=== PATIENT | male | born 1970 | race Caucasian/White ===

== ENCOUNTER 2018-06-26 17:49 | Emergency (ER) | payer MEDICAID ==
[~2018-06-26] VITALS: Ht 188 cm; Wt 109.1 kg
[~2018-06-26 17:49] MED LIST: CYCL-1 PO; CYCL-394 PO; PANT-47 PO
[2018-06-26 17:53] VITALS: BP 124/80
[2018-06-26] MEDS ORDERED: dexamethasone sod phosphate 10mg/ml inj IM STA (17:57)
[2018-06-26] MEDS ORDERED: morphine 4 MG/ML inj SYRINge IM ONE (18:00)
[2018-06-26] MEDS ORDERED: ondansetron 4mg rapidly disintigrating tab PO ONE (18:00)
[2018-06-26] MEDS ORDERED: cyclobenzaprine 10mg tablet PO ONE (18:00)
[2018-06-26] MEDS ORDERED: HYDR-4353 PO (18:25)
== END 2018-06-26 18:34 | disposition home or self-care (01) ==
LOC: ER 17:50
DX: M54.5 Low back pain (principal); I10 Essential (primary) hypertension; G89.29 Other chronic pain; F15.90 Other stimulant use, unspecified, uncomplicated; Z98.890 Other specified postprocedural states; Z56.0 Unemployment, unspecified; Z79.899 Other long term (current) drug therapy
CPT/HCPCS: 72100; 96372; 99284; J1100; J2270

== ENCOUNTER 2018-08-28 17:46 | Emergency (ER) | payer MEDICAID | END 2018-08-28 18:36 | disposition left against medical advice (07) | LOC: ER 17:46 | DX: M54.9 Dorsalgia, unspecified (principal); Z53.21 Procedure and treatment not carried out due to patient leaving prior to being seen by health care provider ==

== ENCOUNTER 2019-04-14 10:09 | Emergency (ER) | payer MEDICAID ==
[~2019-04-14] VITALS: Ht 188 cm; Wt 101.0 kg
[2019-04-14 10:14] VITALS: BP 201/121
--- NOTE | 2019-04-14 11:05 | NUR ---
patient has fishhook in middle finger of left hand
[2019-04-14] MEDS ORDERED: LIDOcaine 1% w/EPI 1:100,000 30ml vial (MDV) ONE (12:00)
== END 2019-04-14 11:40 | disposition home or self-care (01) ==
LOC: ER 10:09
DX: S60.453A Superficial foreign body of left middle finger, initial encounter (principal); I10 Essential (primary) hypertension; G89.29 Other chronic pain; F17.210 Nicotine dependence, cigarettes, uncomplicated; F15.90 Other stimulant use, unspecified, uncomplicated; Z98.890 Other specified postprocedural states; Z56.0 Unemployment, unspecified; Z79.899 Other long term (current) drug therapy; X58.XXXA Exposure to other specified factors, initial encounter; Y93.89 Activity, other specified; Y92.89 Other specified places as the place of occurrence of the external cause; Y99.8 Other external cause status
CPT/HCPCS: 99281

== ENCOUNTER 2021-10-25 01:33 | Inpatient (IN) | payer MEDICAID ==
[~2021-10-25] VITALS: Ht 188 cm; Wt 109.1 kg
[2021-10-25 02:57] LABS: BASOPHILS # (AUTO) 0.1 X10'3 (0-0.2); BASOPHILS % (AUTO) 0.5 % (0-1); EOSINOPHILS % (AUTO) 0.3 % (0-6); HEMATOCRIT 37.2 % (42.0-52.0); HEMOGLOBIN 11.6 g/dl (14.0-17.9); LYMPHOCYTES # (AUTO) 1.8 X10'3 (1.1-4.8); LYMPHOCYTES % (AUTO) 12.1 % (21-51); MEAN CORPUSCULAR HEMOGLOBIN 19.9 PG (27.0-31.0); MEAN CORPUSCULAR HGB CONC 31.1 g/dL (33.0-36.5); MEAN CORPUSCULAR VOLUME 63.9 FL (78-98); MEAN PLATELET VOLUME 7.4 FL (7.4-10.4); MONOCYTES # (AUTO) 0.9 X10'3 (0-0.9); MONOCYTES % (AUTO) 5.9 % (2-12); NEUTROPHILS # (AUTO) 12.3 X10'3 (1.8-7.7); NEUTROPHILS % (AUTO) 81.2 % (42-75); PLATELET COUNT 475 X10'3 (140-440); RED BLOOD COUNT 5.82 X10'6 (4.70-6.10); RED CELL DISTRIBUTION WIDTH 19.9 % (11.5-14.5); WHITE BLOOD COUNT 15.1 X10'3 (4.5-11.0)
[2021-10-25 03:10] LABS: ALANINE AMINOTRANSFERASE 32 U/L (12-78); ALBUMIN 4.1 G/DL (3.4-5.0); ALBUMIN/GLOBULIN RATIO 1.1 (1.1-1.5); ALKALINE PHOSPHATASE 79 IU/L (46-116); ANION GAP 15 (8-16); ASPARTATE AMINO TRANSFERASE 25 U/L (10-37); BILIRUBIN,TOTAL 0.3 MG/DL (0.1-1.0); BLOOD UREA NITROGEN 17 MG/DL (7-18); CHLORIDE 102 MMOL/L (99-107); CREATININE 1.54 MG/DL (0.60-1.10); GLUCOSE 115 MG/DL (70-104); LIPASE 146 U/L (73-393); POTASSIUM 3.6 MMOL/L (3.5-5.1); SODIUM 143 MMOL/L (135-145); TOTAL CARBON DIOXIDE 26.5 MMOL/L (24-32); TOTAL PROTEIN 7.9 G/DL (6.4-8.2); eGFR 48 ML/MIN
[2021-10-25] MEDS ORDERED: morphine 4 MG/ML inj SYRINge IV ONE (03:10)
[2021-10-25] MEDS ORDERED: LORazepam 2 mg/ml vial IV ONE (03:10)
[2021-10-25] MEDS ORDERED: normal saline 1000ML IV soln IVB ONE (03:15)
[2021-10-25] MEDS: metoprolol tartrate 1mg/ml inj IV SCH ×6 (03:21→04:25)
[2021-10-25] MEDS ORDERED: iohexol 300mg/ml 100ml inj. ONE (03:22)
[2021-10-25 03:37] LABS: MAGNESIUM 2.3 MG/DL (1.5-2.4)
[2021-10-25 04:41] LABS: ANISOCYTOSIS 2+; ELLIPTOCYTES FEW; MICROCYTOSIS 2+; PLATELET ESTIMATE INCREASED; STOMATOCYTES FEW
[2021-10-25 05:14] LABS: APTT 23 SECONDS (22-32); D-DIMER 1.13 MG/L FEU (0-0.50)
[2021-10-25] MEDS ORDERED: potassium CL 10mEq/100ml bag 100 ML IV PRN (05:30)
[2021-10-25] MEDS: normal saline 1000ml 1,000 ML IV SCH ×2 (05:30→15:30)
[2021-10-25] MEDS ORDERED: morphine 2 MG/ML inj. syringe IV PRN (05:30)
[2021-10-25] MEDS ORDERED: magnesium 4gm in 100ml NS 100 ML IV PRN (05:30)
[2021-10-25] MEDS ORDERED: ondansetron/PF 4mg/2ml inj IV PRN (05:30)
[2021-10-25] MEDS ORDERED: magnesium 2GM in 50ml NS 50 ML IV PRN (05:30)
[2021-10-25] MEDS ORDERED: acetaminophen 325mg tablet PO PRN (05:30)
--- NOTE | 2021-10-25 05:34 | NUR ---
PUT IN AN NG TUBE AND PATIENT STRUGGLED AGAINST STAFF. SUCCEEDED IN PLACEMENT, REMOVED 1 L OF GASTRIC FLUID. PT VOMITED TWICE. PT PULLED OUT THE NG TUBE AND STRUGGLED WHEN WE TRIED TO REPLACE THE NG TUBE. WE FAILED TO PLACE A SECOND NG TUBE SO FAR.
[2021-10-25 05:43] LABS: ETHANOL < 0.010 GM/DL (0.0-0.010)
--- NOTE | 2021-10-25 06:43 | NUR ---
PER SHOWER MAID RN CLIFF PATIENT WAS EXTREMELY COMBATIVE AND AGGRESSIVE WITH 2ND ATTEMPT OF NG TUBE PLACEMENT. PT IS ORIENTED X1 AT THIS TIME AND NON-COMPLIANT. DISCUSSED CARE WITH SHOWER MAID CHARGE, WHO EXPRESSED SAFETY CONCERNS ABOUT PLACING NEW NG TUBE. WILL DISCUSS PLAN OF CARE WITH DAY SHIFT HOSPITALIST.
--- NOTE | 2021-10-25 07:15 | NUR ---
DR. MORGAN PAGED.
--- NOTE | 2021-10-25 07:52 | NUR ---
DR MORGAN UPDATED ON PT CONDITION. PT IS NOT ACTIVELY VOMITTING. PER MD MONITOR MENTATION AND IF PATIENT BECOME MORE AGREEABLE REATTEMPT NG PLACEMENT. WILL CONTINUE TO MONITOR.
[2021-10-25] MEDS: docusate sod 100mg capsule PO SCH ×2 (08:00→20:00)
[2021-10-25] MEDS: pantoprazole 40MG/NS 100ML BAG 100 ML IV SCH (08:16)
[2021-10-25] MEDS: enalaprilat dihydrate 2.5mg/2ml vial IV SCH ×3 (08:18→20:35)
[2021-10-25] MEDS: K and/or MAG REPLACEMENT MC SCH ×2 (08:22→20:00)
--- NOTE | 2021-10-25 10:00 | NUR ---
Patient admitted from ER. accompanied by his father, B/P is high DR Guajardo made aware will continue to monitor.
[2021-10-25 10:01] LABS: POTASSIUM 4.7 MMOL/L (3.5-5.1)
[2021-10-25] MEDS ORDERED: LIDOcaine 2% 10ml TOPICAL JELLY (Urojet) TP ONE (10:35)
[2021-10-25 11:45] LABS: CLARITY,URINE CLEAR (Clear); COLOR,URINE YELLOW (Yellow); GLUCOSE, URINE NEGATIVE (Neg); KETONES,URINE NEGATIVE (Neg); LEUKOCYTE ESTERASE ,URINE NEGATIVE (Neg); NITRITES, URINE NEGATIVE (Neg); OCCULT BLOOD,URINE NEGATIVE (Neg); PROTEIN,URINE NEGATIVE (Neg); UROBILINOGEN,URINE 0.2 E.U/dL (0.2-1.0)
[2021-10-25 11:47] LABS: UA COLLECTION TYPE NON-SPECIFIED
[2021-10-25 11:58] LABS: URINE AMPHETAMINE SCREEN POSITIVE (Neg); URINE BARBITUATE SCREEN NEGATIVE (Neg); URINE BENZODIAZEPINES SCREEN NEGATIVE (Neg); URINE CANNABINOID SCREEN NEGATIVE (Neg); URINE COCAINE SCREEN NEGATIVE (Neg); URINE METHADONE SCREEN NEGATIVE (Neg); URINE OPIATE SCREEN POSITIVE (Neg); URINE PHENCYCLIDINE SCREEN NEGATIVE (Neg)
--- NOTE | 2021-10-25 12:00 | NUR ---
NG-TUBE INSERTED 300CC COLLECTED.
[2021-10-25] MEDS ORDERED: NO HOME MEDS (12:22)
[2021-10-25] MEDS: diatr meglu/diatrizoate 30ml oral sol.-(3 dose) bottle PO SCH ×3 (12:54→18:00)
--- NOTE | 2021-10-25 17:30 | NUR ---
Patient stable no distress noted CT completed awaiting result.
--- NOTE | 2021-10-25 18:27 | NUR ---
Problems reprioritized. Patient report given, questions answered & plan of care reviewed with FABIOLA STEINER.
[2021-10-25 19:00] VITALS: BP 156/81
[2021-10-26] VITALS (29 sets, daily range): BP systolic 139–188; BP diastolic 78–113
[2021-10-26] MEDS: morphine 2 MG/ML inj. syringe IV PRN ×2 (00:27→04:33)
[2021-10-26] MEDS: normal saline 1000ml 1,000 ML IV SCH ×4 (00:28→21:49)
[2021-10-26] MEDS: enalaprilat dihydrate 2.5mg/2ml vial IV SCH ×5 (02:31→19:50)
[2021-10-26] MEDS: VANCOMYCIN 1GM/200ML IVPB 200 ML IV SCH ×2 (04:01→16:19)
[2021-10-26 07:51] LABS: BASOPHILS # (AUTO) 0.1 X10'3 (0-0.2); BASOPHILS % (AUTO) 0.5 % (0-1); EOSINOPHILS % (AUTO) 0.4 % (0-6); LYMPHOCYTES # (AUTO) 1.7 X10'3 (1.1-4.8); LYMPHOCYTES % (AUTO) 16.9 % (21-51); MONOCYTES # (AUTO) 1.4 X10'3 (0-0.9); MONOCYTES % (AUTO) 14.3 % (2-12); NEUTROPHILS # (AUTO) 6.7 X10'3 (1.8-7.7); NEUTROPHILS % (AUTO) 67.9 % (42-75); PLATELET COUNT 331 X10'3 (140-440); WHITE BLOOD COUNT 9.9 X10'3 (4.5-11.0)
--- NOTE | 2021-10-26 07:51 | NUR ---
Problems reprioritized. Patient report given, questions answered & plan of care reviewed with Bakari in OR.
[2021-10-26] MEDS: docusate sod 100mg capsule PO SCH ×3 (08:00→20:09)
[2021-10-26] MEDS: K and/or MAG REPLACEMENT MC SCH ×2 (08:00→19:59)
[2021-10-26] MEDS: pantoprazole 40MG/NS 100ML BAG 100 ML IV SCH (08:00)
[2021-10-26] MEDS ORDERED: propofol inj 20 ML IV ONE (08:18)
[2021-10-26] MEDS ORDERED: fentaNYL /PF 50mcg/ml 5ml ampule ONE (08:18)
[2021-10-26] MEDS ORDERED: rocuronium 10mg/ml inj IV ONE (08:18)
[2021-10-26] MEDS ORDERED: midazolam 1 mg/ML 2ml injection ONE (08:18)
[2021-10-26] MEDS: piperacillin/tazo 3.375gm/50ml 50 ML IV SCH ×3 (08:25→23:46)
[2021-10-26] MEDS ORDERED: ceFOXitin 1000 MG inj ONE ×2 (08:32)
[2021-10-26 08:39] LABS: ALANINE AMINOTRANSFERASE 21 U/L (12-78); ALKALINE PHOSPHATASE 57 IU/L (46-116); ANION GAP 14 (8-16); ASPARTATE AMINO TRANSFERASE 18 U/L (10-37); BILIRUBIN,TOTAL 0.4 MG/DL (0.1-1.0); BLOOD UREA NITROGEN 24 MG/DL (7-18); BUN/CREATININE RATIO 16.4 (5.4-32.0); CALCIUM 7.6 MG/DL (8.5-10.1); CHLORIDE 108 MMOL/L (99-107); CREATININE 1.46 MG/DL (0.60-1.10); GLUCOSE 94 MG/DL (70-104); POTASSIUM 4.3 MMOL/L (3.5-5.1); SODIUM 145 MMOL/L (135-145); TOTAL CARBON DIOXIDE 23.1 MMOL/L (24-32); eGFR 52 ML/MIN
[2021-10-26] MEDS ORDERED: proCHLORperazine 10 MG/2 ml inj IV PRN (08:40)
[2021-10-26] MEDS ORDERED: meperidine/PF 25mg/ml syringe IV PRN ×2 (08:40)
[2021-10-26] MEDS ORDERED: morphine 2 MG/ML inj. syringe IV PRN (08:40)
[2021-10-26] MEDS ORDERED: ondansetron/PF 4mg/2ml inj IV PRN (08:40)
[2021-10-26] MEDS ORDERED: ringers solution, lacted 1,000 ML IV SCH (08:40)
[2021-10-26 08:42] LABS: HEMOGLOBIN 9.8 g/dl (14.0-17.9); RED BLOOD COUNT 4.64 X10'6 (4.70-6.10)
[2021-10-26 08:43] LABS: MEAN CORPUSCULAR HEMOGLOBIN 21.1 PG (27.0-31.0); MEAN CORPUSCULAR HGB CONC 31.5 g/dL (33.0-36.5); MEAN CORPUSCULAR VOLUME 66.8 FL (78-98); RED CELL DISTRIBUTION WIDTH 20.2 % (11.5-14.5)
[2021-10-26] MEDS ORDERED: neostigmine methylsulfate 1 MG/ML 10ml vial ONE (09:34)
[2021-10-26] MEDS ORDERED: glycopyrrolate 0.2mg/ml inj ONE (09:34)
[2021-10-26] MEDS ORDERED: ondansetron/PF 4mg/2ml inj ONE (09:41)
[2021-10-26] MEDS ORDERED: FENTANYL CITRATE/PF 50 MCG/1 ML VIAL ONE (09:49)
--- NOTE | 2021-10-26 09:53 | NUR ---
Received from OR via HOSPITAL BED , accompanied by Anesthesiologist DR MILTON and report given by Anesthesiolgist. PT PRESENTS WITH PIV 18G RIGHT WRIST ABD DDRESSING CLEAN DRY AND INTACT. VSS. Addendum: 10/26/21 at 1015 by Zaida Carrillo RN, RN Amended: Links added.
[2021-10-26] MEDS: meperidine/PF 25mg/ml syringe IV PRN ×3 (10:07→10:39)
[2021-10-26] MEDS: morphine 4 MG/ML inj SYRINge IV PRN ×2 (10:24→11:43)
[2021-10-26] MEDS ORDERED: naloxone 0.4 mg/ml inj IV PRN (11:20)
[2021-10-26] MEDS: HYDROmorph./NS 0.2 mg/ml CADD 100 ML IV SCH ×7 (12:20→23:00)
--- NOTE | 2021-10-26 12:43 | NUR ---
Report called to receiving nurse HILDA STEINER. Transferred via HOSPITAL BED BACK TO ROOM 355B. BED IN LOW LOCKED POSITION WITH CALL LIGHT IN REACH, FAMILY FOLOWWED PT TO ROOM 354B. Special Issues communicated to receiving nurse. Addendum: 10/26/21 at 1258 by Zaida Carrillo RN RN Amended: Links added.
--- NOTE | 2021-10-26 14:40 | NUR ---
PAGER ID: [phone] MESSAGE: HILDA SURG [id number] RE: 354C [place] + BLOOD CULTURE GRAM + COCCI IN CLUSTER AEROBIC BOTTLE DRAWN 10/25 @0430 FROM IV. THANKS
--- NOTE | 2021-10-26 18:21 | NUR ---
Problems reprioritized. Patient report given, questions answered & plan of care reviewed with ERIKA STEINER.
--- NOTE | 2021-10-26 18:24 | NUR ---
PAGER ID: [phone] MESSAGE: HILDA SURG [id number] RE: 354C [place] HAS HIGH BLOOD PRESSURES BUT REFUSES THE VASOTEC, THANKS HILDA
--- NOTE | 2021-10-26 18:40 | NUR ---
Patient in room [facility]. I have received report from Bakari STEINER and had the opportunity to ask questions and assume patient care.
[2021-10-26] MEDS: hydrALAZINE 20mg/ml inj. IV PRN (23:42)
[2021-10-27] VITALS: BP 187/119
[2021-10-27] MEDS: HYDROmorph./NS 0.2 mg/ml CADD 100 ML IV SCH ×12 (01:00→23:00)
[2021-10-27] MEDS: enalaprilat dihydrate 2.5mg/2ml vial IV SCH ×4 (02:17→20:40)
[2021-10-27 02:20] VITALS: BP 146/87
[2021-10-27 04:00] VITALS: BP 159/97
[2021-10-27] MEDS: VANCOMYCIN 1GM/200ML IVPB 200 ML IV SCH ×3 (05:08→23:14)
[2021-10-27 06:21] LABS: BASOPHILS % (AUTO) 0.5 % (0-1); EOSINOPHILS % (AUTO) 0.2 % (0-6); HEMATOCRIT 31.2 % (42.0-52.0); HEMOGLOBIN 9.5 g/dl (14.0-17.9); LYMPHOCYTES # (AUTO) 1.4 X10'3 (1.1-4.8); MEAN CORPUSCULAR HGB CONC 30.6 g/dL (33.0-36.5); MEAN CORPUSCULAR VOLUME 65.4 FL (78-98); MEAN PLATELET VOLUME 7.6 FL (7.4-10.4); MONOCYTES # (AUTO) 1.1 X10'3 (0-0.9); MONOCYTES % (AUTO) 11.8 % (2-12); NEUTROPHILS # (AUTO) 6.9 X10'3 (1.8-7.7); NEUTROPHILS % (AUTO) 72.5 % (42-75); PLATELET COUNT 363 X10'3 (140-440); RED BLOOD COUNT 4.77 X10'6 (4.70-6.10); RED CELL DISTRIBUTION WIDTH 19.9 % (11.5-14.5); WHITE BLOOD COUNT 9.5 X10'3 (4.5-11.0)
--- NOTE | 2021-10-27 06:40 | NUR ---
Problems reprioritized. Patient report given, questions answered & plan of care reviewed with Bakari RN.
[2021-10-27 07:00] VITALS: BP 164/65
[2021-10-27 07:06] LABS: ALANINE AMINOTRANSFERASE 20 U/L (12-78); ALBUMIN 2.6 G/DL (3.4-5.0); ALBUMIN/GLOBULIN RATIO 0.9 (1.1-1.5); ALKALINE PHOSPHATASE 50 IU/L (46-116); ANION GAP 11 (8-16); ASPARTATE AMINO TRANSFERASE 22 U/L (10-37); BILIRUBIN,TOTAL 0.5 MG/DL (0.1-1.0); BLOOD UREA NITROGEN 16 MG/DL (7-18); BUN/CREATININE RATIO 11.1 (5.4-32.0); CALCIUM 7.6 MG/DL (8.5-10.1); CHLORIDE 107 MMOL/L (99-107); CREATININE 1.44 MG/DL (0.60-1.10); GLUCOSE 92 MG/DL (70-104); POTASSIUM 4.1 MMOL/L (3.5-5.1); SODIUM 142 MMOL/L (135-145); TOTAL CARBON DIOXIDE 24.3 MMOL/L (24-32); TOTAL PROTEIN 5.6 G/DL (6.4-8.2); eGFR 52 ML/MIN
[2021-10-27] MEDS: pantoprazole 40MG/NS 100ML BAG 100 ML IV SCH (07:40)
[2021-10-27] MEDS: piperacillin/tazo 3.375gm/50ml 50 ML IV SCH ×2 (07:42→16:49)
[2021-10-27] MEDS: docusate sod 100mg capsule PO SCH ×2 (07:43→20:40)
[2021-10-27] MEDS: K and/or MAG REPLACEMENT MC SCH ×2 (08:00→20:00)
[2021-10-27] MEDS: normal saline 1000ml 1,000 ML IV SCH ×2 (09:00→17:38)
[2021-10-27 12:00] VITALS: BP 181/75
[2021-10-27] MEDS: hydrALAZINE 20mg/ml inj. IV PRN (14:42)
--- NOTE | 2021-10-27 14:56 | NUR ---
PAGER ID: [phone] MESSAGE: Bakari Surg [id number] RE: 354o Ashok, Patient states he has had trouble urinating for sometime, did you still want me to remove the patients zepeda. Ihsan Villegas Addendum: 10/27/21 at 1456 by Rene Ventura RN Received new orders from at this time.
[2021-10-27] MEDS ORDERED: VANCOMYCIN LEVEL IV ONE (15:30)
--- NOTE | 2021-10-27 18:30 | NUR ---
Patient in room [facility]. I have received report from Bakari STEINER and had the opportunity to ask questions and assume patient care.
--- NOTE | 2021-10-27 18:36 | NUR ---
Problems reprioritized. Patient report given, questions answered & plan of care reviewed with Elen STEINER.
[2021-10-27 20:00] VITALS: BP 169/90
[2021-10-27] MEDS: tamsulosin 0.4mg capsule PO SCH (20:40)
--- NOTE | 2021-10-27 22:50 | NUR ---
called and new order received to give 40mg lovenox daily starting tonight.
[2021-10-27] MEDS: enoxaparin 40mg/0.4ml syringe SUBCUT SCH (23:14)
[2021-10-28] VITALS (8 sets, daily range): BP systolic 114–218; BP diastolic 68–109
[2021-10-28] MEDS: hydrALAZINE 20mg/ml inj. IV PRN (00:17)
[2021-10-28] MEDS: normal saline 1000ml 1,000 ML IV SCH ×2 (01:00→05:27)
[2021-10-28] MEDS: HYDROmorph./NS 0.2 mg/ml CADD 100 ML IV SCH ×6 (01:00→11:00)
[2021-10-28] MEDS: piperacillin/tazo 3.375gm/50ml 50 ML IV SCH ×3 (01:25→17:02)
[2021-10-28] MEDS: enalaprilat dihydrate 2.5mg/2ml vial IV SCH ×4 (02:29→20:36)
--- NOTE | 2021-10-28 06:34 | NUR ---
Reported off to Serafin STEINER.
[2021-10-28 06:50] LABS: ALANINE AMINOTRANSFERASE 19 U/L (12-78); ALBUMIN 2.6 G/DL (3.4-5.0); ALBUMIN/GLOBULIN RATIO 0.8 (1.1-1.5); ALKALINE PHOSPHATASE 53 IU/L (46-116); ANION GAP 12 (8-16); ASPARTATE AMINO TRANSFERASE 23 U/L (10-37); BILIRUBIN,TOTAL 0.4 MG/DL (0.1-1.0); BLOOD UREA NITROGEN 13 MG/DL (7-18); BUN/CREATININE RATIO 11.5 (5.4-32.0); CALCIUM 7.7 MG/DL (8.5-10.1); CHLORIDE 106 MMOL/L (99-107); CREATININE 1.13 MG/DL (0.60-1.10); GLUCOSE 78 MG/DL (70-104); POTASSIUM 3.9 MMOL/L (3.5-5.1); SODIUM 140 MMOL/L (135-145); TOTAL CARBON DIOXIDE 21.8 MMOL/L (24-32); TOTAL PROTEIN 5.9 G/DL (6.4-8.2); eGFR 69 ML/MIN
[2021-10-28 06:52] LABS: BASOPHILS % (AUTO) 0.5 % (0-1); EOSINOPHILS # (AUTO) 0.1 X10'3 (0-0.9); LYMPHOCYTES # (AUTO) 1.6 X10'3 (1.1-4.8); LYMPHOCYTES % (AUTO) 16.8 % (21-51); MEAN CORPUSCULAR HEMOGLOBIN 20.1 PG (27.0-31.0); MEAN CORPUSCULAR HGB CONC 30.9 g/dL (33.0-36.5); MEAN CORPUSCULAR VOLUME 64.9 FL (78-98); MEAN PLATELET VOLUME 7.7 FL (7.4-10.4); MONOCYTES % (AUTO) 10.7 % (2-12); NEUTROPHILS # (AUTO) 6.8 X10'3 (1.8-7.7); PLATELET COUNT 355 X10'3 (140-440); RED BLOOD COUNT 4.46 X10'6 (4.70-6.10); RED CELL DISTRIBUTION WIDTH 19.5 % (11.5-14.5); WHITE BLOOD COUNT 9.6 X10'3 (4.5-11.0)
[2021-10-28] MEDS: pantoprazole 40MG/NS 100ML BAG 100 ML IV SCH (07:33)
[2021-10-28] MEDS: VANCOMYCIN 1GM/200ML IVPB 200 ML IV SCH ×2 (07:37→16:56)
[2021-10-28] MEDS ORDERED: ringers solution, lacted 1,000 ML IV SCH (07:45)
[2021-10-28] MEDS: K and/or MAG REPLACEMENT MC SCH ×2 (08:00→20:00)
[2021-10-28] MEDS: docusate sod 100mg capsule PO SCH ×2 (09:24→20:37)
[2021-10-28 11:40] LABS: ANISOCYTOSIS 2+; MICROCYTOSIS 2+; PLATELET ESTIMATE NORMAL
[2021-10-28 11:41] LABS: ELLIPTOCYTES FEW; LARGE PLATELETS FEW
--- NOTE | 2021-10-28 12:24 | NUR ---
Malnutrition consult: pt admit dx SBO s/p small bowel resection 10/26 per EMR. Pt reports being unsure of wt loss and w/ a decreased appetite per RN malnutrition screen. Pt has mild weakness, though this is to be expected after surgery, and trace edema per EMR. Pt reported wts are consistent, w/ scaled wt hx 100kg in 2019 and pending scaled wt this admit. Pt has been NPO since 10/25, though now currently on clear liquid diet 10/28 w/ no documented meals. Pt lacks minimum two malnutrition criteria at this time. Recommend advancing to low fiber diet as tolerated. Will continue to monitor for nutrient needs this admit. Addendum: 10/28/21 at [address] Amended: Links added. Addendum: 10/28/21 at [address] I have reviewed assessment by internal communications intern
[2021-10-28] MEDS ORDERED: VANCOMYCIN LEVEL IV ONE (15:30)
[2021-10-28] MEDS: HYDROmorph./NS 0.2 mg/ml CADD 50 ML IV SCH ×5 (17:00→22:58)
[2021-10-28] MEDS: CADD PCA waste documentation MC PRN (17:18)
[2021-10-28] MEDS: tamsulosin 0.4mg capsule PO SCH (20:37)
[2021-10-28] MEDS: enoxaparin 40mg/0.4ml syringe SUBCUT SCH (20:37)
[2021-10-28] MEDS: mag hydrox/Alum hydrox/simeth 30ml oral suspension PO PRN (21:04)
[2021-10-29] VITALS: BP 169/84
[2021-10-29] MEDS: HYDROmorph./NS 0.2 mg/ml CADD 50 ML IV SCH ×6 (01:00→11:00)
[2021-10-29] MEDS: mag hydrox/Alum hydrox/simeth 30ml oral suspension PO PRN (01:09)
[2021-10-29] MEDS: enalaprilat dihydrate 2.5mg/2ml vial IV SCH ×4 (01:09→21:06)
[2021-10-29] MEDS: piperacillin/tazo 3.375gm/50ml 50 ML IV SCH ×4 (01:10→23:40)
[2021-10-29 06:03] LABS: BASOPHILS % (AUTO) 0.7 % (0-1); EOSINOPHILS # (AUTO) 0.2 X10'3 (0-0.9); EOSINOPHILS % (AUTO) 2.8 % (0-6); HEMATOCRIT 28.7 % (42.0-52.0); LYMPHOCYTES # (AUTO) 1.1 X10'3 (1.1-4.8); LYMPHOCYTES % (AUTO) 18.4 % (21-51); MEAN CORPUSCULAR HEMOGLOBIN 20.3 PG (27.0-31.0); MEAN CORPUSCULAR HGB CONC 31.3 g/dL (33.0-36.5); MEAN PLATELET VOLUME 7.3 FL (7.4-10.4); MONOCYTES # (AUTO) 0.7 X10'3 (0-0.9); MONOCYTES % (AUTO) 12.2 % (2-12); NEUTROPHILS % (AUTO) 65.9 % (42-75); PLATELET COUNT 357 X10'3 (140-440); RED BLOOD COUNT 4.41 X10'6 (4.70-6.10); RED CELL DISTRIBUTION WIDTH 19.8 % (11.5-14.5); WHITE BLOOD COUNT 6.1 X10'3 (4.5-11.0)
[2021-10-29 06:48] LABS: ALANINE AMINOTRANSFERASE 18 U/L (12-78); ALBUMIN 2.5 G/DL (3.4-5.0); ALBUMIN/GLOBULIN RATIO 0.8 (1.1-1.5); ALKALINE PHOSPHATASE 47 IU/L (46-116); ANION GAP 13 (8-16); ASPARTATE AMINO TRANSFERASE 21 U/L (10-37); BILIRUBIN,TOTAL 0.3 MG/DL (0.1-1.0); BLOOD UREA NITROGEN 10 MG/DL (7-18); BUN/CREATININE RATIO 9.6 (5.4-32.0); CALCIUM 7.9 MG/DL (8.5-10.1); CHLORIDE 104 MMOL/L (99-107); CREATININE 1.04 MG/DL (0.60-1.10); GLUCOSE 90 MG/DL (70-104); POTASSIUM 3.8 MMOL/L (3.5-5.1); SODIUM 138 MMOL/L (135-145); TOTAL CARBON DIOXIDE 21.4 MMOL/L (24-32); TOTAL PROTEIN 5.7 G/DL (6.4-8.2); eGFR 76 ML/MIN
--- NOTE | 2021-10-29 06:49 | NUR ---
Patient in room [facility]. I have received report from Queenie STEINER and had the opportunity to ask questions and assume patient care.
[2021-10-29] MEDS: docusate sod 100mg capsule PO SCH ×2 (07:55→21:06)
[2021-10-29] MEDS: pantoprazole 40MG/NS 100ML BAG 100 ML IV SCH (07:55)
[2021-10-29 08:00] VITALS: BP 167/87
[2021-10-29] MEDS: K and/or MAG REPLACEMENT MC SCH ×2 (08:00→20:00)
--- NOTE | 2021-10-29 09:00 | NUR ---
Pt refusing to walk this AM. Stating he will walk the 3 laps later, went back to sleep. notified.
--- NOTE | 2021-10-29 10:27 | NUR ---
D/C zepeda catheter per MD order, patient tolerated procedure well with no issues. Urinal provided.
[2021-10-29] MEDS: CADD PCA waste documentation MC PRN (11:20)
[2021-10-29 12:00] VITALS: BP 205/107
[2021-10-29] MEDS: magnesium hydroxide 30ml (MOM) UD suspension PO PRN (12:25)
[2021-10-29] MEDS: normal saline 1000ml 1,000 ML IV SCH (12:41)
--- NOTE | 2021-10-29 13:20 | NUR ---
Patient in room [facility]. I have received report from manuel CUEVAS and had the opportunity to ask questions and assume patient care.
--- NOTE | 2021-10-29 15:18 | NUR ---
I called the pathology lab at [phone], spoke to Melanie about Dr. Uribe and now Dr. Terry requesting result of specimen that was sent during surgery. She said that the result should be uploaded to the [facility] once their doctor reviewed and signed the report.
[2021-10-29] MEDS: amLODIPine 5mg tablet PO SCH (15:30)
[2021-10-29 16:00] VITALS: BP 192/112
--- NOTE | 2021-10-29 16:12 | NUR ---
PAGER ID: [phone] MESSAGE: Vladimir Pulido#[phone]- Would you like me to enter PO meds for pt? You spoke about [facility] [facility]. I was not sure if I needed to enter it. :) Thank you very much. Leatha Espino [phone]
--- NOTE | 2021-10-29 16:20 | NUR ---
pat refused to ambulate @1620h to student Nickolas Beckman
[2021-10-29 16:44] VITALS: BP 151/72
[2021-10-29] MEDS: HYDROcodone/acetaminophen 5mg/325mg tablet PO PRN (16:45)
[2021-10-29 18:00] VITALS: BP 177/95
--- NOTE | 2021-10-29 18:34 | NUR ---
Problems reprioritized. Patient report given, questions answered & plan of care reviewed with Papo STEINER traveler.
[2021-10-29] MEDS: tamsulosin 0.4mg capsule PO SCH (21:05)
[2021-10-29] MEDS: enoxaparin 40mg/0.4ml syringe SUBCUT SCH (21:07)
[2021-10-30] VITALS: BP 151/70
[2021-10-30] MEDS: magnesium hydroxide 30ml (MOM) UD suspension PO PRN (02:41)
[2021-10-30] MEDS: enalaprilat dihydrate 2.5mg/2ml vial IV SCH ×2 (02:41→07:37)
[2021-10-30] MEDS: HYDROcodone/acetaminophen 5mg/325mg tablet PO PRN (02:41)
[2021-10-30 06:19] LABS: BASOPHILS % (AUTO) 0.8 % (0-1); EOSINOPHILS # (AUTO) 0.2 X10'3 (0-0.9); EOSINOPHILS % (AUTO) 3.5 % (0-6); HEMATOCRIT 30.2 % (42.0-52.0); HEMOGLOBIN 9.4 g/dl (14.0-17.9); LYMPHOCYTES # (AUTO) 1.2 X10'3 (1.1-4.8); LYMPHOCYTES % (AUTO) 21.6 % (21-51); MEAN CORPUSCULAR VOLUME 64.5 FL (78-98); MEAN PLATELET VOLUME 7.4 FL (7.4-10.4); MONOCYTES # (AUTO) 0.8 X10'3 (0-0.9); MONOCYTES % (AUTO) 13.1 % (2-12); NEUTROPHILS # (AUTO) 3.5 X10'3 (1.8-7.7); PLATELET COUNT 406 X10'3 (140-440); RED BLOOD COUNT 4.68 X10'6 (4.70-6.10); RED CELL DISTRIBUTION WIDTH 19.6 % (11.5-14.5); WHITE BLOOD COUNT 5.8 X10'3 (4.5-11.0)
[2021-10-30 07:00] VITALS: BP 171/85
[2021-10-30] MEDS: docusate sod 100mg capsule PO SCH (07:36)
[2021-10-30] MEDS: piperacillin/tazo 3.375gm/50ml 50 ML IV SCH (07:36)
[2021-10-30] MEDS: K and/or MAG REPLACEMENT MC SCH (07:37)
[2021-10-30] MEDS: amLODIPine 5mg tablet PO SCH (07:37)
[2021-10-30 07:53] LABS: ANISOCYTOSIS 2+; ELLIPTOCYTES FEW; MICROCYTOSIS 2+; PLATELET ESTIMATE NORMAL
[2021-10-30 08:19] LABS: ALANINE AMINOTRANSFERASE 18 U/L (12-78); ALBUMIN 2.5 G/DL (3.4-5.0); ALBUMIN/GLOBULIN RATIO 0.6 (1.1-1.5); ALKALINE PHOSPHATASE 46 IU/L (46-116); ANION GAP 12 (8-16); ASPARTATE AMINO TRANSFERASE 17 U/L (10-37); BILIRUBIN,TOTAL 0.2 MG/DL (0.1-1.0); BLOOD UREA NITROGEN 9 MG/DL (7-18); BUN/CREATININE RATIO 8.5 (5.4-32.0); CALCIUM 8.3 MG/DL (8.5-10.1); CHLORIDE 105 MMOL/L (99-107); CREATININE 1.06 MG/DL (0.60-1.10); GLUCOSE 91 MG/DL (70-104); POTASSIUM 3.7 MMOL/L (3.5-5.1); SODIUM 138 MMOL/L (135-145); TOTAL CARBON DIOXIDE 21.1 MMOL/L (24-32); TOTAL PROTEIN 6.9 G/DL (6.4-8.2); eGFR 75 ML/MIN
[2021-10-30 08:55] VITALS: BP 158/85
[2021-10-30] MEDS ORDERED: lisinopril 20mg tablet PO SCH (12:00)
[2021-10-30] MEDS ORDERED: LISI20TA28 PO ×2 (12:17)
[2021-10-30] MEDS ORDERED: NOR5T PO ×2 (12:17)
[2021-10-30] MEDS ORDERED: DOCU-150 PO ×2 (12:19)
[2021-10-30] MEDS ORDERED: HYDR-3965 PO (12:26)
[2021-10-30 12:29] VITALS: BP 169/94
[2021-10-30 13:03] VITALS: BP_SYST 176
--- NOTE | 2021-10-30 13:37 | NUR ---
PAGER ID: [phone] MESSAGE: Vladimir Pulido 354C Pt. c/o of dizziness when walking this Am. No t yesterday. Pt. has some positive orthostatics: 165/90 bp sitting 99 hr and 139/96 bp with 109 hr standing. Want stat PT eval so yolanda can get a walker? Kaur [phone]
--- NOTE | 2021-10-30 14:14 | NUR ---
PAGER ID: [phone] MESSAGE: Discharge for 354C Vladimir Pulido pending pain pill script. Can we have some one come get it? Pt. says he has a walker at home PT. rosi canceled. Kaur [phone]
--- NOTE | 2021-10-30 14:14 | NUR ---
3rd request for pain management script from hospitalist. Pt's says she will stop by later for it.
--- NOTE | 2021-10-30 14:33 | NUR ---
DISCHARGE NOTE: Discussed discharge paperwork with pt. IV DC'd, cannula intact, no s/sx bleeding noted. Discussed f/u care with PCP, and surgeon, and oncology. Pt. provided with contact information. Medications and possible ASE discussed with pt. They have been e-scripted to preferred pharmacy. Pt. unable to get written pain med script, but his will come back and pick it up later. Pt. gathered all of his belongings. His is here with him and states they have a walker at home- pt. c/o dizziness. positive orthostatics. Hospitalist aware. Pt. discharged home escorted out to personal vehicle in a w/c.
[2021-10-31] MEDS ORDERED: HYDR-3964 PO (13:38)
[2021-10-31] MEDS ORDERED: LISI40TA13 PO (13:38)
[2021-10-31] MEDS ORDERED: AMLO10TA13 PO (13:38)
[2021-10-31] MEDS ORDERED: DOCU100C40 PO (13:38)
== END 2021-10-30 14:09 | disposition home or self-care (01) | DRG 230 ==
LOC: ER 01:34 → ED HOLD 05:33 → SUR 3N 09:54
PROVIDERS: ADMIT Internal Medicine; ATTEND Internal Medicine
PROC: 0D9670Z Drainage of Stomach with Drainage Device, Via Natural or Artificial Opening (ICD-10-PCS; 2021-10-25)
PROC: B4201ZZ Computerized Tomography (CT Scan) of Abdominal Aorta using Low Osmolar Contrast (ICD-10-PCS; 2021-10-25)
PROC: B4241ZZ Computerized Tomography (CT Scan) of Superior Mesenteric Artery using Low Osmolar Contrast (ICD-10-PCS; 2021-10-25)
PROC: B4281ZZ Computerized Tomography (CT Scan) of Bilateral Renal Arteries using Low Osmolar Contrast (ICD-10-PCS; 2021-10-25)
PROC: B42C1ZZ Computerized Tomography (CT Scan) of Pelvic Arteries using Low Osmolar Contrast (ICD-10-PCS; 2021-10-25)
PROC: B42H1ZZ Computerized Tomography (CT Scan) of Bilateral Lower Extremity Arteries using Low Osmolar Contrast (ICD-10-PCS; 2021-10-25)
PROC: B4211ZZ Computerized Tomography (CT Scan) of Celiac Artery using Low Osmolar Contrast (ICD-10-PCS; 2021-10-25)
PROC: 07BB0ZZ Excision of Mesenteric Lymphatic, Open Approach (ICD-10-PCS; 2021-10-26)
PROC: 0DBB0ZZ Excision of Ileum, Open Approach (ICD-10-PCS; principal; 2021-10-26 08:17)
DX: D3A.019 Benign carcinoid tumor of the small intestine, unspecified portion (principal); N17.0 Acute kidney failure with tubular necrosis; J96.90 Respiratory failure, unspecified, unspecified whether with hypoxia or hypercapnia; K56.609 Unspecified intestinal obstruction, unspecified as to partial versus complete obstruction; D64.9 Anemia, unspecified; F15.10 Other stimulant abuse, uncomplicated; E66.9 Obesity, unspecified; I12.9 Hypertensive chronic kidney disease with stage 1 through stage 4 chronic kidney disease, or unspecified chronic kidney disease; N18.9 Chronic kidney disease, unspecified; N13.9 Obstructive and reflux uropathy, unspecified; Z20.822 Contact with and (suspected) exposure to COVID-19; I16.1 Hypertensive emergency; K42.9 Umbilical hernia without obstruction or gangrene; G89.29 Other chronic pain; R33.9 Retention of urine, unspecified; M54.9 Dorsalgia, unspecified; Z56.0 Unemployment, unspecified; Z68.30 Body mass index [BMI] 30.0-30.9, adult; Z79.899 Other long term (current) drug therapy
CPT/HCPCS: 36415; 71045; 74174; 74176; 80053; 80202; 80305; 80320; 81003; 82948; 83605; 83690; 83735; 84132; 84484; 85008; 85025; 85379; 85610; 85730; 86885; 86900; 86901; 87040; 87077; 87186; 87635; 93005; 96361; 96374; 96375; 99291; A4618; A7000; C9113; C9803; G0378; J0360; J0694; J1170; J1650; J2060; J2175; J2250; J2270; J2405; J2543; J2704; J2710; J3010; J3370; J3490; J7030; J7120; Q9963; Q9967

== ENCOUNTER 2021-10-31 02:33 | Inpatient (IN) | payer MEDICAID ==
[~2021-10-31] VITALS: Ht 188 cm; Wt 109.1 kg
[~2021-10-31 02:33] MED LIST changes: -CYCL-1 PO; -CYCL-394 PO; +DOCU-150 PO; +HYDR-3965 PO; +LISI20TA28 PO; +NOR5T PO; -PANT-47 PO
[2021-10-31] MEDS ORDERED: morphine 4 MG/ML inj SYRINge IV ONE ×2 (02:45→03:10)
[2021-10-31] MEDS ORDERED: ondansetron/PF 4mg/2ml inj IV ONE (02:50)
[2021-10-31 03:02] LABS: BASOPHILS % (AUTO) 0.6 % (0-1); EOSINOPHILS # (AUTO) 0.2 X10'3 (0-0.9); EOSINOPHILS % (AUTO) 2.8 % (0-6); HEMATOCRIT 34.2 % (42.0-52.0); HEMOGLOBIN 10.4 g/dl (14.0-17.9); LYMPHOCYTES # (AUTO) 1.3 X10'3 (1.1-4.8); LYMPHOCYTES % (AUTO) 17.1 % (21-51); MEAN CORPUSCULAR HEMOGLOBIN 19.6 PG (27.0-31.0); MEAN CORPUSCULAR HGB CONC 30.4 g/dL (33.0-36.5); MEAN CORPUSCULAR VOLUME 64.3 FL (78-98); MONOCYTES # (AUTO) 0.8 X10'3 (0-0.9); MONOCYTES % (AUTO) 10.5 % (2-12); NEUTROPHILS # (AUTO) 5.3 X10'3 (1.8-7.7); PLATELET COUNT 530 X10'3 (140-440); RED BLOOD COUNT 5.31 X10'6 (4.70-6.10); RED CELL DISTRIBUTION WIDTH 19.5 % (11.5-14.5); WHITE BLOOD COUNT 7.6 X10'3 (4.5-11.0)
[2021-10-31] MEDS: diatr meglu/diatrizoate 30ml oral sol.-(3 dose) bottle PO SCH ×2 (03:10→04:09)
[2021-10-31] MEDS ORDERED: iohexol 300mg/ml 100ml inj. ONE (03:13)
[2021-10-31 03:15] LABS: ALANINE AMINOTRANSFERASE 29 U/L (12-78); ALBUMIN/GLOBULIN RATIO 0.7 (1.1-1.5); ALKALINE PHOSPHATASE 56 IU/L (46-116); ANION GAP 9 (8-16); ASPARTATE AMINO TRANSFERASE 31 U/L (10-37); BILIRUBIN,TOTAL 0.2 MG/DL (0.1-1.0); BLOOD UREA NITROGEN 10 MG/DL (7-18); BUN/CREATININE RATIO 8.4 (5.4-32.0); CALCIUM 8.9 MG/DL (8.5-10.1); CHLORIDE 103 MMOL/L (99-107); CREATININE 1.19 MG/DL (0.60-1.10); GLUCOSE 122 MG/DL (70-104); POTASSIUM 3.6 MMOL/L (3.5-5.1); SODIUM 137 MMOL/L (135-145); TOTAL CARBON DIOXIDE 24.7 MMOL/L (24-32); TOTAL PROTEIN 7.5 G/DL (6.4-8.2); eGFR 65 ML/MIN
--- NOTE | 2021-10-31 05:03 | NUR ---
pt to ct
--- NOTE | 2021-10-31 06:08 | NUR ---
pt observed sleeping, denies needs; vss
[2021-10-31] MEDS ORDERED: normal saline 1000ml 1,000 ML IV ONE (06:40)
--- NOTE | 2021-10-31 07:32 | NUR ---
NGT inserted earlier, pt resting comfortably, no apparent needs or distress at this time.
--- NOTE | 2021-10-31 11:19 | NUR ---
I anser call light to patient stating, "I just shit myself." I accompany patient to restroom and provide bath wipes to clean himself. Upon exit of bathroom, the patient states, "It just came out," in reference to his NG tube. I escort him back to his room, re-insert an NG, and it immediately puts out gastric juice. I do not request an xray per unit charge given confirmation of placement due to gastric output. Tube is reconnected to LIS and patient is provided with education regarding compliance.
--- NOTE | 2021-10-31 11:43 | NUR ---
Pt states he has been taking Cab[place]on, but hasn't picked up the other 3 medications yet since he was just discharged recently.
[2021-10-31] MEDS ORDERED: acetaminophen 325mg tablet PO PRN ×2 (12:00)
[2021-10-31] MEDS ORDERED: magnesium 4gm in 100ml NS 100 ML IV PRN (12:00)
[2021-10-31] MEDS ORDERED: bisacodyl 10mg suppository rectal RC PRN (12:00)
[2021-10-31] MEDS ORDERED: magnesium 2GM in 50ml NS 50 ML IV PRN (12:00)
[2021-10-31] MEDS ORDERED: metoclopramide 5 mg/ml inj IV PRN (12:00)
[2021-10-31] MEDS ORDERED: magnesium Cl slow-release 64mg tablet PO PRN (12:00)
[2021-10-31] MEDS ORDERED: ondansetron 4mg rapidly disintigrating tab PO PRN (12:00)
[2021-10-31] MEDS ORDERED: HYDROcodone/acetaminophen 10/325mg tab PO PRN (12:00)
[2021-10-31] MEDS ORDERED: HYDROcodone/acetaminophen 5mg/325mg tablet PO PRN (12:00)
[2021-10-31] MEDS ORDERED: mag hydrox/Alum hydrox/simeth 30ml oral suspension PO PRN (12:00)
[2021-10-31] MEDS ORDERED: magnesium hydroxide 30ml (MOM) UD suspension PO PRN (12:00)
[2021-10-31] MEDS ORDERED: morphine 2 MG/ML inj. syringe IV PRN ×2 (12:00)
[2021-10-31] MEDS ORDERED: potassium CL 10mEq/100ml bag 100 ML IV PRN (12:00)
[2021-10-31] MEDS ORDERED: acetaminophen 650mg rectal suppository RC PRN (12:00)
[2021-10-31] MEDS ORDERED: ondansetron/PF 4mg/2ml inj IV PRN (12:00)
[2021-10-31] MEDS ORDERED: potassium Cl 20 mEq SR tablet PO PRN ×2 (12:00)
[2021-10-31] MEDS: normal saline 1000ml 1,000 ML IV SCH ×2 (12:40→22:59)
--- NOTE | 2021-10-31 12:45 | NUR ---
Pt updated. has bed, resting comfortably, started 2nd liter of fluids. hold any further dose of colace due to loose stools x2. will be calling report shortly.
--- NOTE | 2021-10-31 13:20 | NUR ---
received report from JATIN Barrett. Awaiting patient arrival.
[2021-10-31] MEDS ORDERED: HYDR-3964 PO (13:38)
[2021-10-31] MEDS ORDERED: LISI40TA13 PO (13:38)
[2021-10-31] MEDS ORDERED: DOCU100C40 PO (13:38)
[2021-10-31] MEDS ORDERED: AMLO10TA13 PO (13:38)
[2021-10-31 13:40] VITALS: BP 149/98
--- NOTE | 2021-10-31 13:50 | NUR ---
patient arrived to floor. VSS. no complaints
[2021-10-31 16:14] LABS: MAGNESIUM 2.2 MG/DL (1.5-2.4); POTASSIUM 4.1 MMOL/L (3.5-5.1)
--- NOTE | 2021-10-31 18:10 | NUR ---
Problems reprioritized. Patient report given, questions answered & plan of care reviewed with JATIN Candelaria.
--- NOTE | 2021-10-31 18:16 | NUR ---
NG removed. No complications
[2021-10-31] MEDS: K and/or MAG REPLACEMENT MC SCH (19:08)
[2021-10-31] MEDS: docusate sod 100mg capsule PO SCH (19:45)
[2021-10-31 20:00] VITALS: BP 147/95
[2021-10-31] MEDS ORDERED: docusate sod 100mg capsule PO SCH (20:00)
[2021-10-31] MEDS ORDERED: temazepam 15mg capsule PO PRN (21:00)
[2021-11-01 06:06] LABS: BASOPHILS # (AUTO) 0.1 X10'3 (0-0.2); EOSINOPHILS # (AUTO) 0.2 X10'3 (0-0.9); HEMATOCRIT 29.3 % (42.0-52.0); HEMOGLOBIN 9.1 g/dl (14.0-17.9); LYMPHOCYTES # (AUTO) 1.6 X10'3 (1.1-4.8); LYMPHOCYTES % (AUTO) 23.6 % (21-51); MEAN CORPUSCULAR HEMOGLOBIN 19.9 PG (27.0-31.0); MEAN CORPUSCULAR VOLUME 64.2 FL (78-98); MEAN PLATELET VOLUME 7.3 FL (7.4-10.4); MONOCYTES # (AUTO) 0.6 X10'3 (0-0.9); MONOCYTES % (AUTO) 9.1 % (2-12); NEUTROPHILS # (AUTO) 4.2 X10'3 (1.8-7.7); NEUTROPHILS % (AUTO) 63.3 % (42-75); PLATELET COUNT 447 X10'3 (140-440); RED BLOOD COUNT 4.57 X10'6 (4.70-6.10); RED CELL DISTRIBUTION WIDTH 19.2 % (11.5-14.5); WHITE BLOOD COUNT 6.6 X10'3 (4.5-11.0)
[2021-11-01 06:12] LABS: ALANINE AMINOTRANSFERASE 38 U/L (12-78); ALBUMIN 2.6 G/DL (3.4-5.0); ALBUMIN/GLOBULIN RATIO 0.7 (1.1-1.5); ALKALINE PHOSPHATASE 49 IU/L (46-116); ANION GAP 9 (8-16); ASPARTATE AMINO TRANSFERASE 37 U/L (10-37); BILIRUBIN,TOTAL 0.2 MG/DL (0.1-1.0); BLOOD UREA NITROGEN 9 MG/DL (7-18); CHLORIDE 106 MMOL/L (99-107); CREATININE 1.13 MG/DL (0.60-1.10); GLUCOSE 91 MG/DL (70-104); MAGNESIUM 2.1 MG/DL (1.5-2.4); POTASSIUM 4.2 MMOL/L (3.5-5.1); SODIUM 139 MMOL/L (135-145); TOTAL CARBON DIOXIDE 24.5 MMOL/L (24-32); TOTAL PROTEIN 6.5 G/DL (6.4-8.2); eGFR 69 ML/MIN
[2021-11-01 06:48] LABS: ANISOCYTOSIS 2+; MICROCYTOSIS 2+; PLATELET ESTIMATE INCREASED
[2021-11-01 06:49] LABS: POIKILOCYTOSIS FEW; POLYCHROMASIA FEW
[2021-11-01 08:00] VITALS: BP 158/95
[2021-11-01] MEDS ORDERED: lisinopril 10 MG tablet PO SCH (08:00)
[2021-11-01] MEDS: K and/or MAG REPLACEMENT MC SCH (08:00)
[2021-11-01] MEDS ORDERED: amLODIPine 5mg tablet PO SCH (08:00)
[2021-11-01] MEDS ORDERED: lisinopril 20mg tablet PO SCH (08:22)
[2021-11-01] MEDS: docusate sod 100mg capsule PO SCH (09:22)
[2021-11-01] MEDS: normal saline 1000ml 1,000 ML IV SCH (09:30)
[2021-11-01 11:00] VITALS: BP 153/90
--- NOTE | 2021-11-01 13:18 | NUR ---
Malnutrition consult: Pt unsure of wt loss though reports decreased appetite per malnutrition risk screen with RN. Patient's current wt isn't scaled though is stable with reported wt hx in EMR with most recent scaled wt h/o 100.95 kg taken 04/14/19 with chair scale. Pt initially NPO with an NGT in place though diet was advanced to clear liquid and pt documented with 25-50% PO intake of first meal. Diet has just been advanced to regular, pending first meal since diet advancement. Pt with no documented decrease in muscle strength or edema and per H&P appears well developed well nourished. Pt currently lacks a minimum of two criteria for malnutrition. Will continue to follow and further monitor qualifying criteria for malnutrition. Addendum: 11/01/21 at [address] Amended: Links added.
--- NOTE | 2021-11-01 17:00 | NUR ---
Pt discharged home with . Patient tolerating food well and having bm's. no current complains of pain or distentions. IV taken out, patient states understanding of discharge instruction and importance of follow up with dr andrade and [facility]. phone numbers have been provided. patient instructed to call wednesday. all belongings taken from room. no meds in pharmacy. no tele
== END 2021-11-01 17:00 | disposition home or self-care (01) | DRG 861 ==
LOC: ER 02:34 → ED HOLD 12:03 → SUR 3N 13:41
PROVIDERS: ADMIT Family Medicine; ATTEND Family Medicine
PROC: 0D9670Z Drainage of Stomach with Drainage Device, Via Natural or Artificial Opening (ICD-10-PCS; principal; 2021-10-31)
PROC: BW211ZZ Computerized Tomography (CT Scan) of Abdomen and Pelvis using Low Osmolar Contrast (ICD-10-PCS; 2021-10-31)
DX: G89.18 Other acute postprocedural pain (principal); N17.9 Acute kidney failure, unspecified; K56.609 Unspecified intestinal obstruction, unspecified as to partial versus complete obstruction; C78.4 Secondary malignant neoplasm of small intestine; K63.89 Other specified diseases of intestine; F15.90 Other stimulant use, unspecified, uncomplicated; D3A.098 Benign carcinoid tumors of other sites; I10 Essential (primary) hypertension; G89.29 Other chronic pain; M54.9 Dorsalgia, unspecified; Z56.0 Unemployment, unspecified
CPT/HCPCS: 36415; 74177; 80053; 83605; 83735; 84132; 85008; 85025; 87081; 96361; 96374; 96375; 99285; G0378; J2270; J2405; J7030; Q9963; Q9967

== ENCOUNTER 2021-12-14 22:11 | Emergency (ER) | payer MEDICAID ==
[~2021-12-14] VITALS: Ht 188 cm; Wt 110.0 kg
[~2021-12-14 22:11] MED LIST changes: +AMLO10TA13 PO; -DOCU-150 PO; +DOCU100C40 PO; +HYDR-3964 PO; -HYDR-3965 PO; -LISI20TA28 PO; +LISI40TA13 PO; -NOR5T PO
[2021-12-14 22:46] LABS: CLARITY,URINE CLEAR (Clear); COLOR,URINE YELLOW (Yellow); GLUCOSE, URINE NEGATIVE (Neg); KETONES,URINE NEGATIVE (Neg); LEUKOCYTE ESTERASE ,URINE NEGATIVE (Neg); NITRITES, URINE NEGATIVE (Neg); OCCULT BLOOD,URINE NEGATIVE (Neg); PH,URINE 5.5 (4.8-8.0); PROTEIN,URINE NEGATIVE (Neg); UROBILINOGEN,URINE 0.2 E.U/dL (0.2-1.0)
[2021-12-14 22:47] LABS: UA COLLECTION TYPE CLN CATCH MIDSTREAM
[2021-12-14 22:49] LABS: BASOPHILS % (AUTO) 0.8 % (0-1); EOSINOPHILS # (AUTO) 0.1 X10'3 (0-0.9); HEMATOCRIT 35.6 % (42.0-52.0); HEMOGLOBIN 11.8 g/dl (14.0-17.9); LYMPHOCYTES # (AUTO) 2.5 X10'3 (1.1-4.8); LYMPHOCYTES % (AUTO) 39.8 % (21-51); MEAN CORPUSCULAR HGB CONC 33.1 g/dL (33.0-36.5); MEAN CORPUSCULAR VOLUME 69.5 FL (78-98); MEAN PLATELET VOLUME 7.3 FL (7.4-10.4); MONOCYTES # (AUTO) 0.7 X10'3 (0-0.9); MONOCYTES % (AUTO) 11.8 % (2-12); NEUTROPHILS # (AUTO) 2.8 X10'3 (1.8-7.7); NEUTROPHILS % (AUTO) 45.6 % (42-75); PLATELET COUNT 462 X10'3 (140-440); RED BLOOD COUNT 5.13 X10'6 (4.70-6.10); RED CELL DISTRIBUTION WIDTH 25.2 % (11.5-14.5); WHITE BLOOD COUNT 6.2 X10'3 (4.5-11.0)
[2021-12-14 23:01] LABS: ALBUMIN 3.4 G/DL (3.4-5.0); ALKALINE PHOSPHATASE 66 IU/L (46-116); BILIRUBIN,TOTAL 0.3 MG/DL (0.1-1.0); BLOOD UREA NITROGEN 13 MG/DL (7-18); BUN/CREATININE RATIO 9.8 (5.4-32.0); CALCIUM 7.6 MG/DL (8.5-10.1); CHLORIDE 109 MMOL/L (99-107); CREATININE 1.33 MG/DL (0.60-1.10); eGFR 57 ML/MIN
[2021-12-14 23:38] LABS: ALANINE AMINOTRANSFERASE 24 U/L (12-78); ALBUMIN/GLOBULIN RATIO 0.9 (1.1-1.5); ANION GAP 10 (8-16); ASPARTATE AMINO TRANSFERASE 18 U/L (10-37); SODIUM 144 MMOL/L (135-145); TOTAL PROTEIN 7.4 G/DL (6.4-8.2)
[2021-12-14 23:42] LABS: GLUCOSE 102 MG/DL (70-104)
[2021-12-15 00:22] LABS: NUCLEATED RED BLOOD CELLS 1 /100WBC (0-0); TOTAL CELLS COUNTED 100
[2021-12-15 00:23] LABS: ANISOCYTOSIS 3+; MICROCYTOSIS 2+; PLATELET ESTIMATE INCREASED
[2021-12-15 00:24] LABS: POLYCHROMASIA FEW
[2021-12-15] MEDS ORDERED: ondansetron/PF 4mg/2ml inj IV ONE (00:25)
[2021-12-15] MEDS ORDERED: normal saline 1000ml 1,000 ML IV ONE (00:25)
[2021-12-15] MEDS ORDERED: morphine 4 MG/ML inj SYRINge IV ONE (00:25)
[2021-12-15] MEDS ORDERED: iohexol 300mg/ml 100ml inj. ONE (00:29)
[2021-12-15 01:29] VITALS: BP 118/61
== END 2021-12-15 02:59 | disposition home or self-care (01) ==
LOC: ER 22:11
DX: R10.84 Generalized abdominal pain (principal); Z48.00 Encounter for change or removal of nonsurgical wound dressing; R31.9 Hematuria, unspecified
CPT/HCPCS: 36415; 74177; 80053; 81003; 85007; 85025; 96374; 96375; 99285; J2270; J2405; J7030; Q9967

== ENCOUNTER 2021-12-20 20:01 | Emergency (ER) | payer MEDICAID ==
[~2021-12-20] VITALS: Ht 188 cm; Wt 104.5 kg
[2021-12-20 20:44] LABS: BASOPHILS % (AUTO) 0.6 % (0-1); EOSINOPHILS # (AUTO) 0.1 X10'3 (0-0.9); EOSINOPHILS % (AUTO) 1.4 % (0-6); HEMATOCRIT 34.3 % (42.0-52.0); HEMOGLOBIN 11.4 g/dl (14.0-17.9); LYMPHOCYTES # (AUTO) 2.2 X10'3 (1.1-4.8); LYMPHOCYTES % (AUTO) 29.7 % (21-51); MEAN CORPUSCULAR HEMOGLOBIN 23.3 PG (27.0-31.0); MEAN CORPUSCULAR HGB CONC 33.1 g/dL (33.0-36.5); MEAN CORPUSCULAR VOLUME 70.2 FL (78-98); MEAN PLATELET VOLUME 7.2 FL (7.4-10.4); MONOCYTES # (AUTO) 0.6 X10'3 (0-0.9); MONOCYTES % (AUTO) 8.8 % (2-12); NEUTROPHILS # (AUTO) 4.3 X10'3 (1.8-7.7); NEUTROPHILS % (AUTO) 59.5 % (42-75); PLATELET COUNT 373 X10'3 (140-440); RED BLOOD COUNT 4.89 X10'6 (4.70-6.10); RED CELL DISTRIBUTION WIDTH 25.1 % (11.5-14.5); WHITE BLOOD COUNT 7.3 X10'3 (4.5-11.0)
[2021-12-20 20:57] LABS: ALANINE AMINOTRANSFERASE 23 U/L (12-78); ALBUMIN 3.7 G/DL (3.4-5.0); ALKALINE PHOSPHATASE 65 IU/L (46-116); ANION GAP 10 (8-16); ASPARTATE AMINO TRANSFERASE 19 U/L (10-37); BILIRUBIN,TOTAL 0.2 MG/DL (0.1-1.0); BLOOD UREA NITROGEN 17 MG/DL (7-18); BUN/CREATININE RATIO 10.3 (5.4-32.0); CALCIUM 8.1 MG/DL (8.5-10.1); CHLORIDE 107 MMOL/L (99-107); CREATININE 1.65 MG/DL (0.60-1.10); GLUCOSE 98 MG/DL (70-104); LIPASE 274 U/L (73-393); SODIUM 141 MMOL/L (135-145); TOTAL CARBON DIOXIDE 23.6 MMOL/L (24-32); TOTAL PROTEIN 7.3 G/DL (6.4-8.2); eGFR 45 ML/MIN
[2021-12-20 21:10] VITALS: BP 119/69
[2021-12-20] MEDS ORDERED: acetaminophen 325mg tablet PO ONE (23:00)
[2021-12-20] MEDS ORDERED: ibuprofen tablet 400 MG TABLET PO ONE (23:00)
[2021-12-20] MEDS ORDERED: ibuprofen 200mg tablet PO ONE (23:25)
[2021-12-20 23:28] LABS: ANISOCYTOSIS 3+; MICROCYTOSIS 1+; PLATELET ESTIMATE NORMAL
[2021-12-20 23:29] LABS: ELLIPTOCYTES 1+
[2021-12-21 00:24] LABS: CLARITY,URINE CLEAR (Clear); COLOR,URINE YELLOW (Yellow); GLUCOSE, URINE NEGATIVE (Neg); KETONES,URINE NEGATIVE (Neg); LEUKOCYTE ESTERASE ,URINE NEGATIVE (Neg); NITRITES, URINE NEGATIVE (Neg); OCCULT BLOOD,URINE NEGATIVE (Neg); PH,URINE 5.5 (4.8-8.0); PROTEIN,URINE NEGATIVE (Neg); UROBILINOGEN,URINE 0.2 E.U/dL (0.2-1.0)
[2021-12-21 00:30] LABS: UA COLLECTION TYPE CLN CATCH MIDSTREAM
== END 2021-12-21 00:56 | disposition home or self-care (01) ==
LOC: ER 20:01
DX: R10.32 Left lower quadrant pain (principal); I10 Essential (primary) hypertension; G89.29 Other chronic pain; F15.90 Other stimulant use, unspecified, uncomplicated; Z98.890 Other specified postprocedural states; Z56.0 Unemployment, unspecified; Z85.9 Personal history of malignant neoplasm, unspecified; Z79.899 Other long term (current) drug therapy
CPT/HCPCS: 80053; 81003; 83690; 85008; 85025; 99284

== ENCOUNTER 2022-08-11 21:57 | Emergency (ER) | payer MEDICAID ==
[~2022-08-11] VITALS: Ht 190.5 cm; Wt 104.5 kg
[2022-08-11 22:20] LABS: BASOPHILS % (AUTO) 0.6 % (0-1); EOSINOPHILS % (AUTO) 0.5 % (0-6); HEMATOCRIT 44.7 % (42.0-52.0); HEMOGLOBIN 15.3 g/dl (14.0-17.9); LYMPHOCYTES # (AUTO) 1.7 X10'3 (1.1-4.8); LYMPHOCYTES % (AUTO) 40.7 % (21-51); MEAN CORPUSCULAR HEMOGLOBIN 30.6 PG (27.0-31.0); MEAN CORPUSCULAR HGB CONC 34.3 g/dL (33.0-36.5); MEAN CORPUSCULAR VOLUME 89.1 FL (78-98); MEAN PLATELET VOLUME 7.5 FL (7.4-10.4); MONOCYTES # (AUTO) 0.5 X10'3 (0-0.9); NEUTROPHILS # (AUTO) 1.9 X10'3 (1.8-7.7); NEUTROPHILS % (AUTO) 46.2 % (42-75); PLATELET COUNT 243 X10'3 (140-440); RED BLOOD COUNT 5.02 X10'6 (4.70-6.10); RED CELL DISTRIBUTION WIDTH 13.3 % (11.5-14.5); WHITE BLOOD COUNT 4.1 X10'3 (4.5-11.0)
[2022-08-11 22:25] VITALS: BP 112/80
[2022-08-11 22:42] LABS: ALANINE AMINOTRANSFERASE 26 U/L (12-78); ALBUMIN 3.2 G/DL (3.4-5.0); ALBUMIN/GLOBULIN RATIO 0.8 (1.1-1.5); ALKALINE PHOSPHATASE 52 IU/L (46-116); ANION GAP 10 (8-16); BILIRUBIN,TOTAL 0.3 MG/DL (0.1-1.0); BLOOD UREA NITROGEN 16 MG/DL (7-18); BUN/CREATININE RATIO 8.7 (5.4-32.0); CALCIUM 7.6 MG/DL (8.5-10.1); CHLORIDE 104 MMOL/L (99-107); CREATININE 1.84 MG/DL (0.60-1.10); SODIUM 136 MMOL/L (135-145); TOTAL CARBON DIOXIDE 22.5 MMOL/L (24-32); eGFR 39 ML/MIN
[2022-08-11 22:54] LABS: POTASSIUM 3.7 MMOL/L (3.5-5.1)
[2022-08-11 23:10] LABS: ASPARTATE AMINO TRANSFERASE 24 U/L (10-37); GLUCOSE 106 MG/DL (70-104)
--- NOTE | 2022-08-12 00:48 | NUR ---
pt refused covid. flu.strep test
--- NOTE | 2022-08-12 00:48 | NUR ---
pt refused c19 and flu swab. dr lay made aware.
== END 2022-08-12 01:24 | disposition home or self-care (01) ==
LOC: ER 21:57
DX: G89.29 Other chronic pain (principal); M54.59 Other low back pain; I10 Essential (primary) hypertension; F12.10 Cannabis abuse, uncomplicated; Z79.899 Other long term (current) drug therapy
CPT/HCPCS: 36415; 71045; 80053; 83605; 83880; 84145; 84484; 85025; 87040; 93005; 99285

== ENCOUNTER 2023-08-20 17:14 | Emergency (ER) | payer MEDICAID ==
[~2023-08-20] VITALS: Ht 188 cm; Wt 102.3 kg
[2023-08-20 17:50] LABS: EOSINOPHILS # (AUTO) 0.1 X10'3 (0-0.9); MEAN CORPUSCULAR HGB CONC 34.2 g/dL (33.0-36.5); RED CELL DISTRIBUTION WIDTH 13.9 % (11.5-14.5)
[2023-08-20 17:52] LABS: BASOPHILS % (AUTO) 0.5 % (0-1); EOSINOPHILS % (AUTO) 1.2 % (0-6); HEMATOCRIT 44.7 % (42.0-52.0); HEMOGLOBIN 15.3 g/dl (14.0-17.9); LYMPHOCYTES # (AUTO) 2.4 X10'3 (1.1-4.8); LYMPHOCYTES % (AUTO) 31.6 % (21-51); MEAN CORPUSCULAR HEMOGLOBIN 30.3 PG (27.0-31.0); MEAN CORPUSCULAR VOLUME 88.6 FL (78-98); MEAN PLATELET VOLUME 6.8 FL (7.4-10.4); MONOCYTES # (AUTO) 0.7 X10'3 (0-0.9); MONOCYTES % (AUTO) 9.1 % (2-12); NEUTROPHILS # (AUTO) 4.4 X10'3 (1.8-7.7); NEUTROPHILS % (AUTO) 57.6 % (42-75); PLATELET COUNT 321 X10'3 (140-440); RED BLOOD COUNT 5.04 X10'6 (4.70-6.10); WHITE BLOOD COUNT 7.6 X10'3 (4.5-11.0)
[2023-08-20 18:01] LABS: ALBUMIN 3.6 G/DL (3.4-5.0); ALKALINE PHOSPHATASE 72 IU/L (46-116); ANION GAP 8 (8-16); BILIRUBIN,TOTAL 0.3 MG/DL (0.1-1.0); BLOOD UREA NITROGEN 21 MG/DL (7-18); BUN/CREATININE RATIO 12.8 (10.0-20.0); CALCIUM 8.6 MG/DL (8.5-10.1); CHLORIDE 103 MMOL/L (99-107); CREATININE 1.64 MG/DL (0.60-1.10); LIPASE 76 U/L (16-77); SODIUM 136 MMOL/L (135-145); TOTAL CARBON DIOXIDE 24.6 MMOL/L (24-32); TOTAL PROTEIN 7.1 G/DL (6.4-8.2); eCRCL 63 ML/MIN; eGFR 45 ML/MIN
[2023-08-20 18:19] LABS: ALANINE AMINOTRANSFERASE 30 U/L (12-78); ASPARTATE AMINO TRANSFERASE 20 U/L (10-37)
[2023-08-20 18:22] LABS: GLUCOSE 104 MG/DL (70-104); POTASSIUM 4.3 MMOL/L (3.5-5.1)
[2023-08-20] MEDS ORDERED: HYDROmorphone 1 mg/ml syringe IV ONE (21:40)
[2023-08-20] MEDS ORDERED: normal saline 1000ML IV soln IVB ONE (21:40)
[2023-08-20] MEDS ORDERED: iohexol 300mg/ml 100ml inj. ONE (21:42)
[2023-08-20 21:45] VITALS: RESP 22
[2023-08-20] MEDS ORDERED: morphine 4 MG/ML inj SYRINge IV ONE (22:35)
[2023-08-20 22:48] VITALS: BP 106/67; PULSE 69; TEMP 97.8; O2SAT 98
[2023-08-20] MEDS ORDERED: ondansetron/PF 4mg/2ml inj IV ONE (22:55)
[2023-08-21] MEDS ORDERED: HYDROcodone/acetaminophen 5mg/325mg tablet PO ONE (00:20)
[2023-08-21] MEDS ORDERED: ketorolac trometh. 30mg/ml inj. IV ONE (00:20)
[2023-08-21] MEDS ORDERED: ONDA8TAB13 PO (00:22)
[2023-08-21] MEDS ORDERED: HYDR-3965 PO (00:22)
== END 2023-08-21 00:46 | disposition home or self-care (01) ==
LOC: ER 17:15
DX: R10.10 Upper abdominal pain, unspecified (principal); I10 Essential (primary) hypertension; G89.29 Other chronic pain; M54.9 Dorsalgia, unspecified; F15.10 Other stimulant abuse, uncomplicated; Z79.899 Other long term (current) drug therapy; Z79.1 Long term (current) use of non-steroidal anti-inflammatories (NSAID)
CPT/HCPCS: 36415; 74177; 80053; 83690; 84484; 85025; 93005; 96361; 96374; 96375; 99285; J1170; J1885; J2270; J2405; J3490; J7030; Q9967

== ENCOUNTER 2025-04-05 10:38 | Outpatient (CLI) | payer MEDICAID ==
[~2025-04-05 10:38] MED LIST changes: -AMLO10TA13 PO; -DOCU100C40 PO; -LISI40TA13 PO
--- NOTE | 2025-04-05 13:25 | RADIOLOGY REPORT ---
PROCEDURE: MR MRI HEAD INDICATION: HEADACHE, UNSPECIFIED EXAM DATE: 04/05/2025 11:06 AM COMPARISON: None TECHNIQUE: MRI of the brain with and without 15 cc clariscan intravenous contrast. FINDINGS: Diffusion weighted images of the brain demonstrate no evidence of acute infarction. There is no evidence of acute intracranial hemorrhage, extra-axial collection, mass effect, midline s hift, herniation or hydrocephalus. The ventricles, sulci and cisterns appear age appropriate. Idot-gd-gxzwzelv changes of chronic microvascular ischemic disease with involvement of the laina. No abnormal enhancement. There are no signal abnormalities on the susceptibility weighted sequences. The major vascular flow voids are present. The visualized paranasal sinuses and mastoid air cells are clear. The surrounding soft tissues and o sseous structures are unremarkable. IMPRESSION: 1. No evidence of acute infarction, intracranial hemorrhage, mass effect or hydrocephalus. Mild-to-mo derate changes of chronic microvascular ischemic disease. No abnormal enhancement. HS:Y
[2025-04-05] MEDS ORDERED: GADOTERATE MEGLUMINE 7.5 MMOL/15 ML VIAL IV ONE (15:42)
== END 2025-04-05 23:59 | disposition home or self-care (01) ==
LOC: MRI 10:38
PROVIDERS: ATTEND Neuromusculoskeletal Medicine & OMM
DX: I67.82 Cerebral ischemia (principal); R51.9 Headache, unspecified
CPT/HCPCS: 70553; A9575